=== PATIENT | male | born 1980 | race Caucasian/White ===

== ENCOUNTER 2017-01-22 08:03 | Day surgery (SDC) | payer MEDICARE, OTHER ==
[~2017-01-22] VITALS: Ht 185.4 cm; Wt 95.4 kg
--- NOTE | 2017-01-23 08:09 | OR ---
ADMIT: 01/22/2017 RM/LOC: [facility] MR#: [id number] [address] [place], [place] [id number] LOBITO MATIAS [address] [place] [address] Operative/Delivery Room Report SEX: M AGE: 36 : 1980 SURGERY DATE: 01/22/2017 SURGEON: Kamar Johnson MD PREOPERATIVE DIAGNOSES: 1. Cervical spondylosis. 2. Cervicalgia. 3. Chronic daily headache. POSTOPERATIVE DIAGNOSES: 1. Cervical spondylosis. 2. Cervicalgia. 3. Chronic daily headache. OPERATION: Bilateral C2, C3, C4, and C5 medial branch block INDICATION FOR PROCEDURE: The patient is a pleasant gentleman with history of chronic neck pain with headaches, comes here for planned cervical C2, C3, and C4 medial branch block bilaterally. ANESTHESIA: Local without sedation. ESTIMATED BLOOD LOSS: Zero. COMPLICATIONS: None. DESCRIPTION OF PROCEDURE: After the patient was seen in the preoperative area, vital signs were taken prior to procedure. The risks, benefits, and alternative therapies were discussed at length. The patient comes in, consent is obtained and updated. The patient was taken to the fluoroscopy suite and placed on the fluoroscopic table in the prone position. Pressure points were padded to comfort, monitor applied, and a timeout performed. Next, the patient's jaw was turned to the left side. The patient was monitored throughout the procedure. The patient's cervical area was then prepped and ADMIT: 01/22/2017 RM/LOC: [facility] MR#: [id number] [address] [place] [id number] LOBITO GONZALEZ [address], [place] [address] Operative/Delivery Room Report SEX: M AGE: 36 : 1980 draped in a sterile fashion using ChloraPrep. Fluoroscopy was then brought in to identify C2-C3 junction, C3 waist, C4 waist, and C5 waist on the right side. A 22-gauge curved tip spinal needle was then advanced until making contact with C2-C3 junction, C3 waist, C4 waist, and C5 waist on the right side. Isovue-300 was used to confirm the placement. Then I injected 0.5 ml solution consisting of 5 mg of dexamethasone with 0.25% bupivacaine distributed at each level. Then we moved on to the left side and repeated the same procedure. On examination twenty minutes after the procedure, the patient had 80% pain relief, and range of motion was full at the neck. Kamar Johnson MD/ wilber JOB #: [id number] CC: Kamar Johnson, Attending Physician Zayda Quiñones, Family Physician
== END 2017-01-22 09:58 | disposition home or self-care (01) ==
LOC: SSS 08:03
PROC: 3E0T33Z Introduction of Anti-inflammatory into Peripheral Nerves and Plexi, Percutaneous Approach (ICD-10-PCS; principal; 2017-01-22)
PROC: 3E0T3BZ Introduction of Anesthetic Agent into Peripheral Nerves and Plexi, Percutaneous Approach (ICD-10-PCS; principal; 2017-01-22)
PROC: BR14YZZ Fluoroscopy of Cervical Facet Joint(s) using Other Contrast (ICD-10-PCS; principal; 2017-01-22)
DX: G89.29 Other chronic pain (principal); M47.812 Spondylosis without myelopathy or radiculopathy, cervical region; Z79.899 Other long term (current) drug therapy; Z88.6 Allergy status to analgesic agent